=== PATIENT | female | born 1960 ===

== ENCOUNTER 2023-01-05 09:37 | Outpatient (CLI) | payer OTHER | END 2023-01-05 09:55 | disposition home or self-care (01) | LOC: SONOGRAMA 09:37 | PROVIDERS: ATTEND Pathology Anatomic Pathology & Clinical Pathology | DX: D34 Benign neoplasm of thyroid gland (principal); D36.0 Benign neoplasm of lymph nodes; E04.2 Nontoxic multinodular goiter; R22.1 Localized swelling, mass and lump, neck ==